=== PATIENT | female | born 1965 | race Two or more races ===

== ENCOUNTER 2018-08-08 22:50 | Emergency (ER) | payer OTHER ==
[~2018-08-08] VITALS: Ht 167.6 cm; Wt 66.0 kg
[2018-08-08] MEDS ORDERED: SODIUM CHLORIDE 0.9% 1,000ML IVBOLUS ONE (23:30)
[2018-08-09 05:28] VITALS: BP 103/52
== END 2018-08-09 06:26 | disposition home or self-care (01) ==
LOC: ED 08-09 02:54
DX: F10.121 Alcohol abuse with intoxication delirium (principal); G93.41 Metabolic encephalopathy
CPT/HCPCS: 96360; 99284; J7030